=== PATIENT | male | born 1985 | race Caucasian/White ===

== ENCOUNTER 2016-07-08 12:34 | Emergency (ER) | payer MEDICARE, MEDICAID ==
[~2016-07-08] VITALS: Ht 157.5 cm; Wt 76.9 kg
[~2016-07-08 12:34] MED LIST: CALC0.25 PO; CALC1TAB79 PO; LISI2.5T3 PO; MULTTAB67 PO; PRAV10TA PO; SIRO1TAB3 PO; SODI650T PO
[2016-07-08 12:37] VITALS: BP 140/89; PULSE 88; RESP 20; TEMP 97.8; O2SAT 97
[2016-07-08] MEDS ORDERED: ACETAMINOPHEN/HYDROcodone 325 MG/5 MG TAB PO ONE (13:30)
--- NOTE | 2016-07-08 13:33 | PD ---
HPI Chief Complaint: Musculoskeletal Complaint Time Seen by Provider: 13:29 Travel History International Travel<30 days: No Contact w/Intl Traveler<30days: No Traveled to known affect area: No History of Present Illness HPI 31-year-old male presents to emergency department accompanied by his mother for evaluation of right knee pain. He states he has had pain in his right knee now for 2 days. He denies any trauma. No recent illness. He states the pain is moderate. Worse with weightbearing and bending of the knee. Some relief with elevation. 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 He states he had transplant when he was approximately 7 months old. He also has a history of renal insufficiency. He denies any history of gout. He denies any fever, chills, numbness, tingling. Positive swelling and pain. PFSH Past Medical History Narrative Medical Hypertension, renal insufficiency, liver transplant, tyrosine metabolism deficiency Cardiovascular Problems: Yes (HTN) Tetanus Vaccination: Unknown Past Surgical History Narrative Surgical Liver transplant Social History Alcohol Use: No Tobacco Use: No Substance Use: No Allergies-Medications (Allergen,Severity, Reaction): Coded Allergies: Penicillin (Verified Allergy, Severe, 07/08/16) Turns purple Vancomycin (Verified Allergy, Severe, HIVES & Swollen lip , 07/08/16) Reported Meds & Prescriptions Reported Meds & Active Scripts Active Deltasone (Prednisone) 20 Mg Tab 20 Mg PO TID Lortab (Hydrocodone-Acetaminophen) 5-325 Mg Tab 1 Tab PO Q4H PRN Pravastatin 10 Mg Tab 10 Mg PO DAILY Must complete FASTING LABS before further refills. Sirolimus 1 Mg Tab 1 Mg PO DAILY Reported Calcium/Vitamin D3 (Calcium Carbonate-Cholecalciferol) 600 Mg-400 Unit Tab 1 Cap PO BIDPC Calcitriol 0.25 Mcg Cap 0.25 Mcg PO DAILY Lisinopril 2.5 Mg Tab 1 Tab PO DAILY Sodium Bicarbonate 650 Mg Tab 2 Tab PO BID two tabs in the morning and afternoon Multiple Vitamin 1 Tab 1 Tab PO DAILY Review of Systems Except as stated in HPI: all other systems reviewed are Neg Musculoskeletal: Positive: Arthralgias (right knee), Limited ROM, Edema, Pain, No: Myalgias Physical Exam Narrative GENERAL: This is a well-nourished, well-developed patient, in no apparent distress. SKIN: No rashes, ecchymoses or lesions. Warm and dry. HEAD: Atraumatic. Normocephalic. EYES: PERRL, EOMI, no discharge or injection. No scleral icterus. EARS: Clear NOSE: Nasal turbinates appear normal. THROAT: Mucosa pink and moist. Airway patent. NECK: Trachea midline. supple, moves head freely. LUNGS: Clear to auscultation. CV: Regular in rhythm. ABDOMEN: Soft nontender. No guarding or rebound. EXT: No clubbing cyanosis. Examination the right lower extremity reveals mild joint swelling. He has decreased flexion of the knee. He's got full extension. There is no anterior posterior draw. No medial lateral collateral ligament instability or pain. He does have tenderness to palpation of the knee in the suprapatellar bursa. There is no erythema or warmth. No pain in the hip , ankle or foot. Has intact sensation with good distal pulses. Patient a place with an antalgic gait. Left lower extremity is unremarkable. The upper extremities are unremarkable. Data Data Last Documented VS Vital Signs Date Time Temp Pulse Resp B/P Pulse Ox O2 Delivery O2 Flow Rate FiO2 07/08/16 14:41 17 07/08/16 12:37 97.8 88 140/89 97 Room Air Orders Comprehensive Metabolic Panel (07/08/16 13:27) Uric Acid (07/08/16 13:27) Acetamin-Hydrocod 325-5 Mg ([place] 5-325 (07/08/16 13:30) Labs Laboratory Tests Test 07/08/16 13:30 Sodium Level 140 MEQ/L Potassium Level 4.0 MEQ/L Chloride Level 105 MEQ/L Carbon Dioxide Level 28.0 MEQ/L Anion Gap 7 MEQ/L Blood Urea Nitrogen 23 MG/DL Creatinine 1.71 MG/DL Estimat Glomerular Filtration 47 ML/MIN Rate Random Glucose 88 MG/DL Uric Acid 7.9 MG/DL Calcium Level 8.8 MG/DL Total Bilirubin 0.4 MG/DL Aspartate Amino Transf 29 U/L (AST/SGOT) Alanine Aminotransferase 33 U/L (ALT/SGPT) Alkaline Phosphatase 173 U/L Total Protein 8.0 GM/DL Albumin 3.5 GM/DL [facility] Medical Decision Making Medical Screen Exam Complete: Yes Emergency Medical Condition: Yes Medical Record Reviewed: Yes Interpretation(s) Laboratory Tests Test 07/08/16 13:30 Sodium Level 140 MEQ/L Potassium Level 4.0 MEQ/L Chloride Level 105 MEQ/L Carbon Dioxide Level 28.0 MEQ/L Anion Gap 7 MEQ/L Blood Urea Nitrogen 23 MG/DL Creatinine 1.71 MG/DL Estimat Glomerular Filtration 47 ML/MIN Rate Random Glucose 88 MG/DL Uric Acid 7.9 MG/DL Calcium Level 8.8 MG/DL Total Bilirubin 0.4 MG/DL Aspartate Amino Transf 29 U/L (AST/SGOT) Alanine Aminotransferase 33 U/L (ALT/SGPT) Alkaline Phosphatase 173 U/L Total Protein 8.0 GM/DL Albumin 3.5 GM/DL Differential Diagnosis Differential diagnoses: Arthritis, gout, sprain Narrative Course Patient is given Lortab 5 a grams by mouth. Come post metabolic panel and uric acid. The patient has an elevated uric acid of 7.8. I suspect his pain in his knee is associated with an inflammatory arthritis such as gout. The patient has mildly decreased renal function. His liver functions are normal. The patient is given Lortab and prednisone. The patient is advised to follow closely with his doctor on Sunday. This is inflammatory arthritis, gout Diagnosis Primary Impression: Inflammatory arthritis Additional Impression: Gout attack Qualified Code: M10.9 - Acute gout of right knee, unspecified cause Patient Instructions: Narcotic given in the ED, General Instructions Additional Instructions: Rest. Elevation. Prednisone and Lortab. Avoid any red meats, cheeses. Follow-up with your doctor on Sunday for recheck. Return to the ER for emergencies. Med/Other Pt SpecificInfo: Prescription(s) given Scripts Prednisone (Deltasone)20 Mg Tab20 Mg PO TID #15 TAB Prov:Natasha Marroquin MD 07/08/16 Hydrocodone-Acetaminophen (Lortab)5-325 Mg Tab1 Tab PO Q4H PRN (PAIN) #12 TAB Prov:Natasha Marroquin MD 07/08/16 Disposition: 01 DISCHARGE HOME Condition: Stable Prasad Simon Jul 08, 2016 13:33
[2016-07-08 14:23] LABS: ALKALINE PHOSPHATASE 173 U/L (45-117); ALT (GPT) 33 U/L (12-78); ANION GAP 7 MEQ/L (5-15); AST (GOT) 29 U/L (15-37); BLOOD UREA NITROGEN 23 MG/DL (7-18); CHLORIDE 105 MEQ/L (98-107); GLOMERULAR FILTRATION RATE 47 ML/MIN (>89); SODIUM (NA) 140 MEQ/L (136-145); TOTAL BILIRUBIN ADULT 0.4 MG/DL (0.2-1.0); URIC ACID 7.9 MG/DL (2.6-7.2)
[2016-07-08 14:41] VITALS: RESP 17
[2016-07-08] MEDS ORDERED: HYDR-3533 PO (14:52)
[2016-07-08] MEDS ORDERED: PRED-503 PO (14:52)
[2016-07-08 14:58] VITALS: BP 122/77; TEMP 97.8
[2016-08-31] MEDS ORDERED: LISI2.5T3 PO (15:59)
[2016-08-31] MEDS ORDERED: PRAV10TA PO (15:59)
== END 2016-07-08 14:58 | disposition home or self-care (01) ==
LOC: NEPD 12:34
DX: M10.9 Gout, unspecified (principal); I12.9 Hypertensive chronic kidney disease with stage 1 through stage 4 chronic kidney disease, or unspecified chronic kidney disease; N18.9 Chronic kidney disease, unspecified; Z94.4 Liver transplant status
CPT/HCPCS: 80053; 84550; 99283